=== PATIENT | male | born 1980 | race Two or more races ===

== ENCOUNTER 2019-05-25 16:47 | Outpatient (CLI) | payer OTHER ==
--- NOTE | 2019-05-25 22:46 | MRI Report ---
Reason: INJ OF RT QUADRICEPS, PAIN IN RT KNEE Procedure Date: 05/25/2019 Accession Number: [id number] / [id number] Procedure: MRI - Knee RT W/O CPT Code: Final Report FULL RESULT: EXAM: RIGHT KNEE MRI WITHOUT CONTRAST. EXAM DATE: 05/25/2019 06:22 PM. CLINICAL HISTORY: Injury of right quadriceps, pain in right knee. COMPARISON: None. TECHNIQUE: Multiplanar, multisequence T1-weighted and fluid-sensitive sequences of the knee without contrast. Other: None. FINDINGS: Bones: No fractures or subluxations. No marrow edema. No bone lesions. Articular Cartilage: Moderate grade III chondromalacia trochlear groove. Focal mild chondromalacia posterior aspect lateral tibial plateau. Moderate chondromalacia mid medial femoral condyle. Medial Meniscus: Complex tear intra-articular surface junction body and posterior horn medial meniscus. Lateral Meniscus: The lateral meniscus is intact. Cruciate Ligaments: The anterior and posterior cruciate ligaments are intact. Collateral Ligaments: The medial collateral and lateral collateral ligamentous structures are intact. Tendons: The quadriceps, patellar, semimembranosus, and popliteus tendons are unremarkable. Musculature: No edema or fatty atrophy. Other: Moderate quantity of fluid patellar recesses. No popliteal cyst. No loose bodies. The medial and lateral retinacula are intact. The subcutaneous tissues and fat pads are unremarkable. IMPRESSION: 1. Focal complex tear intra-articular surface junction body and posterior horn medial meniscus. 2. Moderate quantity of fluid patellar recesses. 3. Moderate grade III chondromalacia trochlear groove. RADIA
== END 2019-05-25 16:48 | disposition home or self-care (01) ==
LOC: DI 16:47
PROVIDERS: ATTEND Orthopaedic Surgery
DX: S83.231A Complex tear of medial meniscus, current injury, right knee, initial encounter (principal); M94.261 Chondromalacia, right knee; M25.461 Effusion, right knee

== ENCOUNTER 2020-01-06 12:22 | Outpatient (CLI) | payer OTHER ==
--- NOTE | 2020-01-08 10:32 | MRI Report ---
PROCEDURE: Elbow LT W/O INDICATIONS: MEDIAL EPICONDYLITIS, UNSP ELBOW TECHNIQUE: Noncontrast coronal proton density fast spin echo and T2 fast spin echo with fat saturation, axial an d sagittal T1 spin echo and T2 fast spin echo with fat saturation through the elbow. COMPARISON: None. FINDINGS: Image quality: Excellent. Lateral structures: The lateral ulnar collateral ligament and radial collateral ligament both appear intact. The overlying common extensor tendon also appears mildly thickened with mild intrasubstance T2 hyperintense signal suggestive of tendinosis and very low-grade intrasubstance partial thickness tear. Medial structures: The ulnar collateral ligament appears thickened at its proximal insertion. The o verlying common flexor tendon also appears thickened with heterogeneous intrasubstance T2 hyperintens e signal and surrounding soft tissue edema. The ulnar nerve appears normal in size and signal within the cubital tunnel. Anterior structures: The biceps and brachialis tendons both appear intact as they insert onto the pr oximal radius and ulna, respectively. No bicipitoradial bursal fluid. The median and radial neurova scular bundles appear normal; no focal muscle atrophy to suggest nerve impingement. Posterior structures: The triceps tendon appears intact. No olecranon bursal fluid. Bone and cartilage: No bone marrow contusions or fractures. No osteochondral injuries. IMPRESSION: 1. Finding is consistent with medial epicondylitis with tendinosis and low to moderate grade partial- thickness tear involving common flexor tendon origin and underlying low-grade sprain of ulnar collate ral ligament. 2. Likely mild tendinosis involving common extensor tendon at its insertion on lateral epicondyles. 3. No marrow edema. No fracture or dislocation. Small amount of joint effusion likely represent physi ologic fluid. Reviewed by: Colin De Los Santos MD on 01/08/2020 10:31 AM PDT Approved by: Colin De Los Santos MD on 01/08/2020 10:31 AM PDT Station ID: [id number]
== END 2020-01-06 12:23 | disposition home or self-care (01) ==
LOC: DI 12:22
PROVIDERS: ATTEND Student in an Organized Health Care Education/Training Program
DX: R93.6 Abnormal findings on diagnostic imaging of limbs (principal); M25.422 Effusion, left elbow